=== PATIENT | female | born 1995 | race Caucasian/White ===

== ENCOUNTER 2016-12-15 11:38 | Emergency (ER) | payer OTHER ==
[~2016-12-15] VITALS: Ht 157.5 cm; Wt 76.3 kg
[~2016-12-15 11:38] MED LIST: ACET50TA PO; IBUP-1114 PO; PRENTAB40 PO
[2016-12-15 14:05] LABS: BASO % 0.3 % (0.0-1.0); EOS # 0.1 K/mm3 (0.0-0.50); EOS % 0.8 % (0.0-3.0); LARGE UNSTAINED CELL # 0.1 K/mm3 (0.0-0.4); LARGE UNSTAINED CELL % 1.1 % (0.0-4.0); LYMPH # 1.9 K/mm3 (1.5-6.5); LYMPH % 23.9 % (24.0-44.0); MEAN CORPUSCULAR HEMOGLOBIN 30.6 pg (27.0-33.0); MEAN CORPUSCULAR HGB CONC 34.9 g/dl (32.0-36.5); MEAN CORPUSCULAR VOLUME 87.5 fl (80.0-96.0); MONO # 0.3 K/mm3 (0.0-0.8); MONO % 3.7 % (0.0-5.0); NEUTROPHILS # 5.3 K/mm3 (1.8-7.7); NEUTROPHILS % 70.2 % (36.0-66.0); PLATELET COUNT, AUTOMATED 209 k/mm3 (150-450); RED CELL DISTRIBUTION WIDTH 12.5 % (11.5-14.5); WHITE BLOOD COUNT 7.5 K/mm3 (4.0-10.0)
[2016-12-15 14:09] LABS: INR 1.04
[2016-12-15 14:24] LABS: CONTROL LINE HCG INT CTR LINE PRESENT
[2016-12-15 14:58] LABS: METHADONE URINE NEGATIVE (NEGATIVE)
--- NOTE | 2016-12-15 15:05 | REP ---
CT Head without contrast HISTORY: Syncope COMPARISON: None There is no intraparenchymal hemorrhage, acute infarct, mass or midline shift. The ventricular system is normal in appearance. There is no extra cerebral collection. There is no fracture. The visualized sinuses are clear. IMPRESSION: There is no intracranial lesion. Signed by Fahad Duggan MD 12/15/2016 02:56 P
[2016-12-15 15:23] VITALS: BP 112/68
[2016-12-15] MEDS ORDERED: PYRI200T5 PO (15:26)
[2016-12-15] MEDS ORDERED: CIPR500T89 PO (15:26)
[2016-12-15 16:14] LABS: ANION GAP 7 MEQ/L (8-16); BLOOD UREA NITROGEN 8 MG/DL (7-18); CALCIUM LEVEL 9.1 MG/DL (8.5-10.1); CARBON DIOXIDE LEVEL 27 MEQ/L (21-32); CHLORIDE LEVEL 104 MEQ/L (98-107); CREATININE FOR GFR 0.66 MG/DL (0.55-1.02); FREE T4 1.24 NG/DL (0.78-1.33); GLUCOSE, FASTING 91 MG/DL (70-105); POTASSIUM SERUM 3.7 MEQ/L (3.5-5.1); SODIUM LEVEL 138 MEQ/L (136-145)
--- NOTE | 2016-12-15 16:53 | REP ---
CHEST, TWO VIEWS: There is no evidence of acute infiltrate. No pleural effusion is seen. The heart is normal in size. The mediastinal silhouette is unremarkable. The visualized osseous structures are intact. IMPRESSION: No acute pulmonary disease. Signed by Kb He MD 12/16/2016 07:40 P
--- NOTE | 2016-12-16 16:11 | ECGEPIP ---
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
== END 2016-12-15 15:40 | disposition home or self-care (01) ==
LOC: M ED 12:56
DX: R55 Syncope and collapse (principal); R11.0 Nausea; N39.0 Urinary tract infection, site not specified; J45.909 Unspecified asthma, uncomplicated; Z90.49 Acquired absence of other specified parts of digestive tract; Z88.1 Allergy status to other antibiotic agents; Z88.8 Allergy status to other drugs, medicaments and biological substances; Z91.040 Latex allergy status; Z91.018 Allergy to other foods
CPT/HCPCS: 36415; 70450; 71020; 80048; 80306; 81001; 82550; 82553; 83735; 84439; 84443; 84703; 85025; 85610; 93005; 93041; 94760; 99284; G0480

== ENCOUNTER → 2017-01-06 | Outpatient (CLI) | payer OTHER ==
[~2017-01-06] MED LIST changes: +CIPR-249 PO; +PYRI1TAB5 PO
--- NOTE | 2017-01-06 13:23 | REP ---
Clinical: Goiter. Technique: Real time suarez scale and color evaluation using linear high frequency transducer. Findings: The thyroid gland is normal in contour, size, echogenicity, and overall appearance. No nodule or cystic lesions are identified. Right lobe measures 4.8 x 2.0 x 1.2 cm. Left lobe measures 4.2 x 1.8 x 1.0 cm. Isthmus measures 5 mm in width. Impression: Normal thyroid ultrasound Signed by Emanuel Sanchez MD 01/06/2017 01:14 P
== END ==
LOC: M RAD 12:50
PROVIDERS: ATTEND Internal Medicine Cardiovascular Disease
DX: E04.9 Nontoxic goiter, unspecified (principal)